=== PATIENT | female | born 2000 | race Caucasian/White ===

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

== ENCOUNTER → 2021-07-26 09:28 | Outpatient (BNVA) | payer BC, SELFPAY | PROVIDERS: PCP Family Medicine; Visit Provider Nurse Practitioner Women's Health | DX: Z11.3 Encounter for screening for infections with a predominantly sexual mode of transmission (principal); N92.6 Irregular menstruation, unspecified | CPT/HCPCS: 82670; 83001; 84146; 84439; 84443; 84702; 86592; 86803; 87340; 87491; 87591; 87661; 87806 ==

== ENCOUNTER → 2021-11-21 12:00 | Outpatient (BNVA) | payer BC, SELFPAY | PROVIDERS: PCP Family Medicine; Visit Provider Nurse Practitioner Women's Health | DX: A74.9 Chlamydial infection, unspecified (principal); Z12.4 Encounter for screening for malignant neoplasm of cervix; E28.2 Polycystic ovarian syndrome | CPT/HCPCS: 87491; 88175 ==

== ENCOUNTER → 2023-07-02 16:15 | Outpatient (BNVA) | payer BC, SELFPAY | PROVIDERS: PCP Family Medicine; Visit Provider Nurse Practitioner Women's Health | DX: E28.2 Polycystic ovarian syndrome (principal) | CPT/HCPCS: 84402; 84439; 84443; 84702 ==

== ENCOUNTER → 2023-10-14 14:19 | Outpatient (BNVA) | payer BC, SELFPAY | PROVIDERS: PCP Family Medicine; Visit Provider Nurse Practitioner Women's Health | DX: Z32.00 Encounter for pregnancy test, result unknown (principal) | CPT/HCPCS: 81025; 87491; 87591 ==

== ENCOUNTER → 2024-01-14 15:22 | Outpatient (BNVA) | payer BC, SELFPAY | PROVIDERS: PCP Family Medicine; Visit Provider Nurse Practitioner Women's Health | DX: E28.2 Polycystic ovarian syndrome (principal) | CPT/HCPCS: 81025 ==